=== PATIENT | female | born 1995 | race Two or more races ===

== ENCOUNTER 2019-10-04 12:20 | Inpatient (IN) | payer OTHER ==
[2019-10-04] MEDS ORDERED: DINOPROSTONE 10 MG VAGINAL SUPPOSITORY VG ONE (12:40)
[2019-10-04 13:21] VITALS: BMI 32.8
[2019-10-04 13:56] LABS: BASO % 0.5 % (0-2.0); EOS % 1.3 % (0-4.5); HEMATOCRIT 32.2 % (32.4-45.2); HEMOGLOBIN 10.5 GM/dL (10.7-15.3); LYMPH % 16.9 % (8-40); MCH 28.3 pg (25.7-33.7); MCHC 32.6 g/dl (32.0-36.0); MEAN CELL VOLUME 86.8 fl (80-96); MEAN PLT VOLUME 8.1 fl (7.5-11.1); MONO % 6.7 % (3.8-10.2); NEUT % 74.6 % (42.8-82.8); PLATELET COUNT 323 K/MM3 (134-434); RBC 3.71 M/mm3 (3.60-5.2); RDW 15.3 % (11.6-15.6); WHITE BLOOD COUNT 10.1 K/mm3 (4.0-10.0)
[2019-10-04 14:26] LABS: BLOOD UREA NITROGEN 8.3 mg/dL (7-18); CALCIUM 8.5 mg/dL (8.5-10.1); CREATININE 0.6 mg/dL (0.55-1.3)
--- NOTE | 2019-10-04 14:43 | CONSULT ---
Past Medical History, Laborist - Primary Care Physician PCP:: Micaela Beckham - Admission Chief Complaint: Term gestation for induction. History of Present Illness: 24 y.o.b. female, at term. EDC 10.04.2019. 40 weeks. GBS pos. Recent HSV 1 outbreak; treated. History Source: Patient Limitations to Obtaining History: No Limitations - Past Medical History [employer]: Denies/None Cardio/Vascular: Denies/None Pulmonary: Denies/None Gastrointestinal: Denies/None Hepatobiliary: Denies/None Renal/: Denies/None Reproductive: Denies/None ...: 3 ...Para: 0 ...Spon : 1 ...Induced : 1 ...EDC by [facility]el: 10/04/19 Heme/Onc: Denies/None Infectious Disease: Denies/None Psych: Denies/None Musculoskeletal: Denies/None Rheumatology: Denies/None ENT: Denies/None Endocrine: Denies/None Dermatology: Denies/None - Past Surgical History Past Surgical History: Yes: None - Smoking History Smoking history: Never smoked Have you smoked in the past 12 months: No - Alcohol/Substance Use Hx Alcohol Use: No Review of Systems - Review of Systems Constitutional: reports: No Symptoms Eyes: reports: No Symptoms HENT: reports: No Symptoms Neck: reports: No Symptoms Cardiovascular: reports: No Symptoms Respiratory: reports: No Symptoms Gastrointestinal: reports: No Symptoms Genitourinary: reports: No Symptoms Breasts: reports: No Symptoms Reported Musculoskeletal: reports: No Symptoms Integumentary: reports: No Symptoms Neurological: reports: No Symptoms Endocrine: reports: No Symptoms Hematology/Lymphatic: reports: No Symptoms Psychiatric: reports: No Symptoms Physical Exam - Maternity Vital Signs: Vital Signs Temperature 98.3 F 10/04/19 14:00 Pulse Rate 83 10/04/19 14:00 Respiratory Rate 20 10/04/19 14:00 Blood Pressure 117/61 10/04/19 14:00 O2 Sat by Pulse Oximetry (%) Constitutional: Yes: Well Nourished, No Distress, Calm Eyes: Yes: WNL, Conjunctiva Clear, EOM Intact HENT: Yes: WNL, Atraumatic, Normocephalic Neck: Yes: WNL, Supple, Trachea Midline Cardiovascular: Yes: WNL, Regular Rate and Rhythm Breast(s): Yes: WNL - Abdominal Exam/OB Fundal Height: 42 Number of Fetuses: Single Presentation: Vertex Contractions: No Monitor Mode: External Heart Rate Location: [facility] Category: I Accelerations: Uniform Decelerations: None - Vaginal Exam/OB Vaginal Bleediing: No Speculum Exam: No Dilatation (cm): 2 Effacement (%): 50 Amniotic Membrane Status: Intact Presentation: Vertex/Position Station: -2 - Physical Exam Musculoskeletal: Yes: WNL Extremities: Yes: WNL Integumentary: Yes: WNL ...Motor Strength: WNL Psychiatric: Yes: WNL - Labs Lab Results: CBC, BMP 10/04/19 13:43 10/04/19 13:43 Problem List - Problems (1) Post-term , 40-42 weeks of gestation Code(s): O48.0 - POST-TERM Assessment/Plan Term/post term gestation for induction. GBS pos. Agree with the plan. Cervidil placed. GBS prophylaxis to start when active. Pt. understands, in agreement.
[2019-10-04 15:04] LABS: INR 1.02 (0.83-1.09)
[2019-10-04 15:07] LABS: ACTIVATED PTT 28.5 SECONDS (25.2-36.5)
--- NOTE | 2019-10-04 15:26 | HP ---
Past Medical History - Primary Care Physician PCP:: Micaela Beckham - Admission Chief Complaint: Induction at 40 week History of Present Illness: 24 yo P0 EDC 10/06/19 EGA 40 week admitted for induction History Source: Patient Limitations to Obtaining History: No Limitations - Past Medical History ...: 3 ...Para: 0 ...Spon : 1 ...Induced : 1 ...EDC by Edel: 10/04/19 - Past Surgical History Past Surgical History: Yes: None Hx Myomectomy: No Hx Transabdominal Cerclage: No - Smoking History Smoking history: Never smoked Have you smoked in the past 12 months: No - Alcohol/Substance Use Hx Alcohol Use: No History of Substance Use: reports: None - Social History Usual Living Arrangement: Yes: With Spouse History of Recent Travel: No Home Medications - Allergies Allergies/Adverse Reactions: Allergies Allergy/AdvReac Type Severity Reaction Status Date / Time No Known Allergies Allergy Verified 10/04/19 13:03 - Home Medications Home Medications: Ambulatory Orders Vitamins (Sjr) - 1 tab PO DAILY 10/04/19 Valtrex 500 mg PO DAILY 10/04/19 Ferrous Sulfate [Feosol] 325 mg PO BID #60 tablet 10/06/19 Physical Exam - Maternity Vital Signs: Vital Signs Temperature 98.3 F 10/04/19 14:00 Pulse Rate 83 10/04/19 14:00 Respiratory Rate 10/04/19 14:00 Blood Pressure 117/61 10/04/19 14:00 O2 Sat by Pulse Oximetry (%) Constitutional: Yes: Well Nourished, No Distress Neck: Yes: WNL Cardiovascular: Yes: WNL Lungs: Clear to auscultation - Abdominal Exam/OB Number of Fetuses: Single Presentation: Vertex Contractions: Yes Regularity: Irregular Monitor Mode: External Heart Rate (range): 140 Heart Rate Location: [facility] Category: I Accelerations: Non-Uniform Decelerations: None - Physical Exam Integumentary: Yes: WNL Psychiatric: Yes: WNL, Alert, Oriented - Labs Lab Results: CBC, BMP 10/04/19 13:43 10/04/19 13:43 Hemorrhage Risk Assessment - Risk Factors Risk Score: 0 Risk Level: Low Risk Problem List - Problems (1) Post-term , 40-42 weeks of gestation Problems reviewed: Yes Code(s): O48.0 - POST-TERM Assessment/Plan IUP at 40 weeks Induction plan cervidil
[2019-10-04] MEDS: ELECTROLYTE-148 SOLN 1,000 ML IV SCH ×2 (16:00→20:30)
[2019-10-04] MEDS ORDERED: AMPICILLIN - 2 GM in SODIUM CHLORIDE 100 ML IVPB ONE (16:00)
[2019-10-04] MEDS ORDERED: AMPICILLIN SODIUM 2 GM VIAL ONE (16:04)
[2019-10-04] MEDS ORDERED: FENTANYL/BUPIVACAINE/NS/PF - PCEA - 50 ML DISP.SYRIN EP ONE (19:26)
[2019-10-04] MEDS ORDERED: LIDO 2%/EPI 1:200000 PRESRVFRE (20 ML SDVIAL) ONE (19:33)
[2019-10-04] MEDS ORDERED: BUPIVACAINE HCL/PF 0.25% (2.5MG/ML) 10 ML VIAL ONE (19:33)
[2019-10-04] MEDS: AMPICILLIN - 1 GM in SODIUM CHLORIDE 100 ML IVPB SCH (20:10)
[2019-10-04] MEDS ORDERED: AMPICILLIN SODIUM 1 GM VIAL ONE (20:19)
[2019-10-04] MEDS ORDERED: NALOXONE HCL 0.4 MG/ML VIAL IVPUSH PRN (20:25)
[2019-10-04] MEDS ORDERED: FENTANYL/BUPIVACAINE/NS/PF - PCEA - 50 ML DISP.SYRIN EP SCH (20:30)
[2019-10-05] MEDS ORDERED: AMPICILLIN SODIUM 1 GM VIAL ONE ×2 (00:22→04:00)
[2019-10-05] MEDS ORDERED: FENTANYL/BUPIVACAINE/NS/PF - PCEA - 50 ML DISP.SYRIN EP ONE ×2 (00:30→05:03)
[2019-10-05] MEDS: AMPICILLIN - 1 GM in SODIUM CHLORIDE 100 ML IVPB SCH ×3 (04:00→09:11)
[2019-10-05] MEDS: ELECTROLYTE-148 SOLN 1,000 ML IV SCH (06:30)
[2019-10-05] MEDS ORDERED: LIDOCAINE HCL 1% PRESERVATIVE FREE - 30ML VIAL ONE (07:14)
[2019-10-05] MEDS ORDERED: OXYTOCIN 20 UNITS in 0.9% NS 20 UNIT/1,000 ML INFUS.BAG IV ONE ×3 (07:14→15:46)
[2019-10-05] MEDS ORDERED: BENZOCAINE 28 GM HEMORRHOIDAL OINTMENT PR PRN (07:49)
[2019-10-05] MEDS ORDERED: WITCH HAZEL 50% (TUCKS) 40 PAD/JAR PAD TP PRN (07:49)
[2019-10-05] MEDS ORDERED: BENZOCAINE 20% 57 GM BOTTLE TP PRN (07:49)
[2019-10-05] MEDS ORDERED: BISACODYL 10 MG SUPP.RECT RC PRN (07:49)
[2019-10-05] MEDS ORDERED: METHYLERGONOVINE MALEATE 0.2 MG/1 ML AMP IM PRN (07:49)
--- NOTE | 2019-10-05 07:49 | PN ---
Ante-Partal Exam - Subjective Vital Signs: Vital Signs Temperature 98.2 F 10/05/19 06:00 Pulse Rate 86 10/05/19 06:45 Respiratory Rate 20 10/05/19 06:45 Blood Pressure 126/77 10/05/19 06:45 O2 Sat by Pulse Oximetry (%) 100 10/05/19 06:45 Bleeding: No Headache: No Visual changes: No Right upper quadrant pain: No - Contractions Contractions: Yes - Exam during Labor Category: I Monitor Decelerations: None Exam: Vaginal Dilatation (cm): FD Effacement (%): 100 Amniotic Membrane Status: Ruptured Presentation: Vertex Station: +2 - Intrapartum Hemorrhage Risk Risk Score: 0 Risk Level: Low Risk - Assessment/Plan Assessment/Plan: Second stage Fully dilated Plan Anticipate vaginal delivery
[2019-10-05] MEDS ORDERED: OXYTOCIN 20 UNITS in 0.9% NS 20 UNIT/1,000 ML INFUS.BAG IV SCH (08:00)
--- NOTE | 2019-10-05 08:14 | PN ---
Delivery - Delivery Vaginal Delivery: No Problems (Shoulders delivered in [facility] position delivered in OA position) Type of Anesthesia: Local, Epidural Episiotomy/Laceration: Right Mediolateral EBL (cc): 400 Delivery, Single - Feeding Plan Initial Plan: Elected not to breastfeed exclusively throughout hospitalization
[2019-10-05] MEDS: ACETAMINOPHEN 325 MG TABLET (FP) PO PRN ×2 (12:34→22:47)
[2019-10-05] MEDS: IBUPROFEN 600 MG TABLET (FP) PO PRN ×2 (12:34→22:48)
--- NOTE | 2019-10-06 07:01 | PN ---
Post Note - Post Date of Delivery: 10/05/19 Post Day: 1 Vital Signs: Vital Signs - 24 hr 10/05/19 10/05/19 10/05/19 07:15 07:30 07:45 Temperature Pulse Rate 76 77 112 H Respiratory 18 18 20 Rate Blood Pressure 128/80 138/78 137/107 H O2 Sat by Pulse 99 99 99 Oximetry (%) 10/05/19 10/05/19 10/05/19 08:15 08:30 08:45 Temperature 98.8 F Pulse Rate 87 85 87 Respiratory 20 18 20 Rate Blood Pressure 128/73 126/63 124/73 O2 Sat by Pulse 100 100 100 Oximetry (%) 10/05/19 10/05/19 10/05/19 09:00 10:00 14:00 Temperature 97.8 F 98.2 F Pulse Rate 79 81 76 Respiratory 18 18 18 Rate Blood Pressure 124/67 124/75 110/59 L O2 Sat by Pulse 100 Oximetry (%) 10/05/19 10/05/19 18:00 22:42 Temperature 98.0 F 98.2 F Pulse Rate 99 H 84 Respiratory 18 20 Rate Blood Pressure 134/79 109/53 L O2 Sat by Pulse Oximetry (%) Labs: Laboratory Results - last 24 hr 10/05/19 10/05/19 08:04 08:04 Cord Blood pH Cancelled 7.31 Cord Blood PCO2 Cancelled 38.9 Cord Blood PO2 Cancelled < 49 H Cord Blood HCO3 Cancelled 19.0 L Cord Base Excess Cancelled -6.4 L - Subjective Subjective: No Complaints - Objective Afebrile: Yes Breast: Not engorged Abdomen: Soft, Non-tender Uterus: Fundus firm Vagina: Scant lochia Extremities: Non-tender - Assessment/Plan (1) Post-term , 40-42 weeks of gestation Assessment: S/P Normal Plan: Routine Care
[2019-10-06] MEDS: ACETAMINOPHEN 325 MG TABLET (FP) PO PRN ×2 (08:32→22:53)
[2019-10-06] MEDS: IBUPROFEN 600 MG TABLET (FP) PO PRN ×2 (08:32→22:53)
[2019-10-06 09:13] LABS: BASO % 0.3 % (0-2.0); EOS % 1.9 % (0-4.5); HEMATOCRIT 28.2 % (32.4-45.2); HEMOGLOBIN 9.4 GM/dL (10.7-15.3); LYMPH % 22.8 % (8-40); MCHC 33.5 g/dl (32.0-36.0); MEAN CELL VOLUME 86.6 fl (80-96); MEAN PLT VOLUME 8.1 fl (7.5-11.1); MONO % 6.8 % (3.8-10.2); NEUT % 68.2 % (42.8-82.8); PLATELET COUNT 299 K/MM3 (134-434); RBC 3.25 M/mm3 (3.60-5.2); RDW 15.5 % (11.6-15.6); WHITE BLOOD COUNT 10.3 K/mm3 (4.0-10.0)
[2019-10-06] MEDS ORDERED: DIPHTH,PERTUSS(ACELL),TET 0.5 ML DISP.SYRIN IM ONE (10:00)
[2019-10-06] MEDS: FERROUS SO4 325 MG TABLET (FP) PO SCH (18:02)
[2019-10-06 20:35] VITALS: TEMP 98.1
[2019-10-07] MEDS: ACETAMINOPHEN 325 MG TABLET (FP) PO PRN (09:13)
[2019-10-07] MEDS: IBUPROFEN 600 MG TABLET (FP) PO PRN (09:15)
[2019-10-07] MEDS: FERROUS SO4 325 MG TABLET (FP) PO SCH (09:15)
--- NOTE | 2019-10-07 09:22 | DS ---
Physical Exam-SYSTEMS ADMINISTRATOR Vital Signs: Vital Signs Temperature 98.1 F 10/06/19 20:34 Pulse Rate 82 10/06/19 20:34 Respiratory Rate 20 10/06/19 20:34 Blood Pressure 123/74 10/06/19 20:34 O2 Sat by Pulse Oximetry (%) 100 10/05/19 09:00 Constitutional: Yes: Well Nourished, No Distress Labs: CBC, BMP 10/06/19 08:24 10/04/19 13:43 Delivery - Delivery Vaginal Delivery: No Problems (Shoulders delivered in [facility] position delivered in OA position) Type of Anesthesia: Local, Epidural Episiotomy/Laceration: Right Mediolateral EBL (cc): 400 Delivery, Single - Stages of Labor Date 1st Stage Initiatied: 10/04/19 Time 1st Stage Initiated: 19:30 Date 2nd Stage Initiated: 10/05/19 Time 2nd Stage Initiated: 07:30 Date of Delivery: 10/05/19 Time of Delivery: 07:58 Time Placenta Delivered: 08:05 - Condition of Infant Collection Systems Consultant/Transportation Supervisor Present: No Infant Gender: Male Weight: 7 lb 4 oz Position: OA Total Hours ROM (Hrs/Mins): 35 - 5 Minutes Total Score: 9 1 Minute Total Score: 9 - Feeding Plan Initial Plan: Elected not to breastfeed exclusively throughout hospitalization Discharge Summary Problems reviewed: Yes Reason For Visit: INDUCTION OF LABOR Current Active Problems Post-term , 40-42 weeks of gestation (Acute) Procedures: Principal: normal vaginal delivery Hospital Course: unremarkable Condition: Good - Instructions Diet, Activity, Other Instructions: Physical activity Resume your normal everyday activity as tolerated no heavy lifting or exercise until seen by your surgeon. You may walk unlimited kayla of and climb stairs. You may resume driving the car when you feel safe and comfortable behind the wheel. No sexual activity as instructed. Wound care If you have a bandage, leave it on, and keep dry for 48-72 hours. After that time discard the outer bandage. If they are tapes on the skin under the out of bandage leave them in place. They will peel off in the next 7 to 10 days. Do Not Peel them off. You may shower the day after surgery. If there are tapes present on the skin, you may shower over them. Diet There are no dietary restrictions. Eat healthy, high-fiber foods. Drink 6 to 8 glasses of liquid each day. This will assist in keeping your bowels are regular. Pain management You may take Tylenol or acetaminophen or Ibuprofen (for example, Motrin, Advil etc.) from my pain prescription medication is ordered should be taken as prescribed for moderate to severe pain. Call MD for any of the following: Severe pain not relieved by medication Fever of 101 or higher Excessive bleeding or drainage on dressing Inability to urinate Disposition: HOME - Home Medications Comprehensive Discharge Medication List: Ambulatory Orders Vitamins (Sjr) - 1 tab PO DAILY 10/04/19 Valtrex 500 mg PO DAILY 10/04/19 Ferrous Sulfate [Feosol] 325 mg PO BID #60 tablet 10/06/19 Ibuprofen [Motrin -] 600 mg PO QID #28 tablet 10/07/19
[2019-10-07 11:32] VITALS: BP 126/57; PULSE 70
== END 2019-10-07 14:20 | disposition home or self-care (01) | DRG 560 ==
LOC: JLDR 12:20 → J3W 10-05 10:00
PROVIDERS: ADMIT Obstetrics & Gynecology; ATTEND Obstetrics & Gynecology
PROC: 10E0XZZ Delivery of Products of Conception, External Approach (ICD-10-PCS; principal; 2019-10-05)
PROC: 0W8NXZZ Division of Female Perineum, External Approach (ICD-10-PCS; 2019-10-05)
DX: O48.0 Post-term pregnancy (principal); O99.824 Streptococcus B carrier state complicating childbirth; Z3A.40 40 weeks gestation of pregnancy; Z37.0 Single live birth
CPT/HCPCS: 36415; 36600; 59409; 80048; 82803; 85025; 85610; 85730; 86593; 86850; 86900; 86901; 90715

== ENCOUNTER 2024-07-09 12:25 | Inpatient (IN) | payer BC, OTHER ==
[2024-07-09] MEDS: ELECTROLYTE-148 SOLN 1,000 ML IV SCH (12:55)
[2024-07-09] MEDS ORDERED: OXYTOCIN 20 UNITS in 0.9% NS 20 UNIT/1,000 ML INFUS.BAG IV ONE (13:16)
[2024-07-09] MEDS: OXYTOCIN 20 UNITS in 0.9% NS 20 UNIT/1,000 ML INFUS.BAG IV SCH (13:21)
[2024-07-09] MEDS ORDERED: METHYLERGONOVINE MALEATE 0.2 MG/1 ML AMP IM PRN (13:53)
[2024-07-09] MEDS ORDERED: BENZOCAINE 28 GM HEMORRHOIDAL OINTMENT TP PRN (13:53)
[2024-07-09] MEDS ORDERED: BENZOCAINE 20% 57 GM BOTTLE TP PRN (13:53)
[2024-07-09] MEDS ORDERED: BISACODYL 10 MG SUPP.RECT RC PRN (13:53)
[2024-07-09] MEDS ORDERED: oxyCODONE HCL 5 MG TABLET PO PRN (13:53)
[2024-07-09] MEDS ORDERED: WITCH HAZEL 50% (TUCKS) 40 PAD/JAR PAD TP PRN (13:53)
[2024-07-09] MEDS ORDERED: IBUPROFEN 600 MG TABLET (FP) PO ONE (14:23)
[2024-07-09] MEDS: IBUPROFEN 600 MG TABLET (FP) PO PRN (14:25)
[2024-07-09 15:23] VITALS: BMI 30.7
[2024-07-09 15:32] LABS: CORD BASE EXCESS -5.1 mmol/L (0-2); CORD HCO3 17.5 mmHg (20-29); CORD PCO2 25.9 mmHg (30-78); CORD pH 7.448 (7.14-7.44)
[2024-07-09 16:05] LABS: BASO % 0.2 % (0-2.0); EOS % 0.3 % (0-4.5); HEMATOCRIT 31.9 % (32.4-45.2); HEMOGLOBIN 10.5 GM/dL (10.7-15.3); LYMPH % 8.4 % (8-40); MCH 29.1 pg (25.7-33.7); MCHC 32.8 g/dl (32.0-36.0); MEAN CELL VOLUME 88.6 fl (80-96); MEAN PLT VOLUME 8.4 fl (7.5-11.1); NEUT % 86.1 % (42.8-82.8); PLATELET COUNT 246 10^3/uL (134-434); RDW 14.7 % (11.6-15.6); WHITE BLOOD COUNT 13.2 K/mm3 (4.0-10.0)
[2024-07-09 16:12] LABS: INR 0.99 (0.83-1.09); PROTHROMBIN TIME (PATIENT) 11.4 SEC (9.7-13.0)
[2024-07-09 16:32] LABS: POTASSIUM 4.2 mmol/L (3.5-5.1)
[2024-07-09 16:33] LABS: CALCIUM 8.5 mg/dL (8.5-10.1)
[2024-07-09 16:34] LABS: BLOOD UREA NITROGEN 6.5 mg/dL (7-18)
[2024-07-09 16:37] LABS: CREATININE 0.8 mg/dL (0.55-1.3)
[2024-07-09] MEDS ORDERED: FERROUS SO4 325 MG TABLET (FP) ONE (17:16)
[2024-07-09] MEDS ORDERED: ACETAMINOPHEN 325 MG TABLET (FP) ONE (17:16)
[2024-07-09] MEDS: FERROUS SO4 325 MG TABLET (FP) PO SCH (17:20)
[2024-07-09] MEDS: ACETAMINOPHEN 325 MG TABLET (FP) PO PRN (17:20)
[2024-07-10 08:29] LABS: BASO % 0.2 % (0-2.0); HEMATOCRIT 28.4 % (32.4-45.2); HEMOGLOBIN 9.6 GM/dL (10.7-15.3); LYMPH % 16.1 % (8-40); MCH 29.5 pg (25.7-33.7); MCHC 33.7 g/dl (32.0-36.0); MEAN CELL VOLUME 87.6 fl (80-96); MEAN PLT VOLUME 8.4 fl (7.5-11.1); MONO % 5.4 % (3.8-10.2); NEUT % 77.3 % (42.8-82.8); PLATELET COUNT 231 10^3/uL (134-434); RBC 3.24 M/mm3 (3.60-5.2); RDW 14.9 % (11.6-15.6); WHITE BLOOD COUNT 12.4 K/mm3 (4.0-10.0)
[2024-07-10] MEDS: PRENATAL VITAMINS W/ FOLIC ACID TABLET (FP) PO SCH (09:03)
[2024-07-10] MEDS ORDERED: SENNOSIDES/DOCUSATE COMBO (SENNA PLUS) TABLET (UD) PO PRN (22:00)
[2024-07-11 11:21] VITALS: BP 119/71; PULSE 88; RESP 18; TEMP 98.5
== END 2024-07-11 16:04 | disposition home or self-care (01) | DRG 807 ==
LOC: JDEL 12:25 → JLDR 12:50 → J3W 22:21
PROVIDERS: ADMIT Obstetrics & Gynecology; ATTEND Obstetrics & Gynecology
PROC: 10E0XZZ Delivery of Products of Conception, External Approach (ICD-10-PCS; principal; 2024-07-09)
DX: O80 Encounter for full-term uncomplicated delivery (principal); Z37.0 Single live birth; Z3A.39 39 weeks gestation of pregnancy
CPT/HCPCS: 36415; 36600; 59409; 80048; 82803; 85025; 85610; 85730; 86780; 86850; 86900; 86901